=== PATIENT | female | born 1955 | race Caucasian/White ===

== ENCOUNTER → 2023-12-02 09:55 | Outpatient (CLI) | payer MEDICARE, SELFPAY ==
--- NOTE | 2023-12-02 | DI.RAD.S_ITS ---
PROCEDURE: FL SHOULDER INJECTION MR/CT LT INDICATIONS: CHRONIC LEFT SHOULDER PAIN COMPARISON: None. TECHNIQUE: The indications, alternatives, benefits, risks, and complications of the procedure were explained to the patient. Written informed consent was obtained and placed in the chart. The shoulder was examined fluoroscopically and a site for needle placement chosen for entry into the glenohumeral joint from an anterior approach. The skin was prepped and draped in a sterile fashion, and 1% lidocaine infiltrated from skin down to joint capsule. A 22 g spinal needle was inserted into the glenohumeral joint, and a small amount of iodinated contrast media injected to confirm intra-articular placement of the needle tip. This was followed by approximately 12 mL dilute solution of a gadolinium containing MR contrast agent. The needle was removed and a dressing was applied. The patient was given postprocedural instructions and sent to the MR suite for MR imaging. FINDINGS: A single fluoroscopic spot image demonstrates intra-articular location of injected iodinated contrast. IMPRESSION: Successful fluoroscopically guided administration of dilute Gadolinium solution into the shoulder joint for MR arthrogram. Dictated by: Diego Marquez M.D. on 12/02/2023 at 16:46 Approved by: Diego Marquez M.D. on 12/02/2023 at 16:47
[2023-12-02] MEDS: SODIUM CHLORIDE 0.9 % 20 ML VIAL IV (11:45)
[2023-12-02] MEDS: LIDOCAINE 1% 20 ML INJ (11:45)
--- NOTE | 2023-12-02 12:10 | DI.MRI.S_ITS ---
PROCEDURE: MR SHOULDER LT W CON INDICATIONS: CHRONIC LEFT SHOULDER PAIN TECHNIQUE: After the administration of 12 mL of dilute intra-articular Gadolinium contrast, oblique coronal T1 and T2 spin echo with fat saturation, oblique sagittal T1 spin echo with and without fat saturation, oblique sagittal T2 fast spin echo with fat saturation, axial T1 spin echo with fat saturation through the shoulder. COMPARISON: None. FINDINGS: Image quality: Excellent. Rotator cuff: Moderate tendinosis of the supraspinatus and infraspinatus. Low grade, articular sided tear at the critical zone of the supraspinatus. No tear of the infraspinatus. The teres minor is unremarkable. Mild tendinosis of the subscapularis, without tear. Mild muscle edema of the supraspinatus. No fatty atrophy of the rotator cuff musculature. Bones and bursae: Mild degenerative changes of the acromioclavicular joint. Type 1 acromion. No os acromiale. Mild subacromial/subdeltoid bursitis. Mild subchondral cystic changes and marrow edema in the posterior aspect of the greater tuberosity, reactive. Large area of high-grade chondral thinning in the superior aspect of the humeral head. No acute fracture. Superior subluxation of the humeral head. Capsule and soft tissues: Tear of the superior labrum. Osvaldo complex is noted. The extra-articular biceps tendon is unremarkable. The intra-articular biceps tendon is intact. Intra-articular contrast distends the glenohumeral joint and the subcoracoid bursa. No contrast extravasation into the subacromial/subdeltoid bursa. IMPRESSION: 1. Mild degenerative changes of the acromioclavicular joint. 2. Moderate chondrosis of the glenohumeral joint. 3. Low-grade tear of the supraspinatus with mild muscle edema. Dictated by: Cathi العلي M.D. on 12/02/2023 at 22:32 Approved by: Cathi العلي M.D. on 12/02/2023 at 22:44
== END ==
LOC: RAD 09:58
PROVIDERS: Referring Provider Orthopaedic Surgery; Visit Provider Orthopaedic Surgery
DX: M75.112 Incomplete rotator cuff tear or rupture of left shoulder, not specified as traumatic (principal); M25.512 Pain in left shoulder; M11.212 Other chondrocalcinosis, left shoulder
CPT/HCPCS: 23350; 73040; 73222; A9579